=== PATIENT | female | born 1985 | race Caucasian/White ===

== ENCOUNTER 2016-10-16 08:52 | Inpatient (IN) | payer OTHER ==
[~2016-10-16] VITALS: Ht 172.7 cm; Wt 83.0 kg
[2016-10-16] VITALS (27 sets, daily range): BP systolic 105–157; BP diastolic 57–91
[~2016-10-16 08:52] MED LIST: ASPIR 8181 M1 PO; MOTRIN800 MG PO; PRENATAL TABLE1 EAC3 PO
[2016-10-16 10:18] LABS: EOSINOPHIL (%) 1.5 % (0-5); EOSINOPHIL COUNT 0.2 K/uL (0-0.3); HEMATOCRIT 37.7 % (36.0-46.0); IMMATURE GRANULOCYTE (%) 0.5 % (0.0-0.7); IMMATURE GRANULOCYTE COUNT 0.1 K/uL; LYMPHOCYTE COUNT 1.4 K/uL (1.0-2.8); MCH 30.5 PG (29.0-34.0); MCHC 34.2 G/DL (30.0-36.0); MCV 89.1 FL (83-99); MEAN PLAT.VOLUME 9.5 uM^3 (9.5-12.4); MONOCYTE (%) 5.3 % (3-12); MONOCYTE COUNT 0.6 K/uL (0-0.8); NEUTROPHIL (%) 79.6 % (45-76); NEUTROPHIL COUNT 8.8 K/uL (1.8-6.4); PLATELET COUNT 246 K/uL (156-360); RBC DIS.WIDTH-CV 13.2 % (11.8-14.6); RED BLOOD COUNT 4.23 M/uL (3.80-5.20)
[2016-10-16] MEDS ORDERED: IBUPROFEN800 MG PO (16:23)
[2016-10-17 07:41] VITALS: BP 134/73
[2016-10-17 14:08] VITALS: BP 127/76
[2016-10-17 23:37] VITALS: BP 130/61
[2016-10-18 07:50] VITALS: BP 108/64
== END 2016-10-18 14:53 | disposition home or self-care (01) | DRG 775 ==
LOC: LDRP-OP 08:52 → 2WEST 08:53 → LDRP-OP 11-16 13:18
PROVIDERS: Advanced Practice Midwife
PROC: 10E0XZZ Delivery of Products of Conception, External Approach (ICD-10-PCS; principal; 2016-10-16)
PROC: 3E0R3CZ (ICD-10-PCS; principal; 2016-10-16)
PROC: 10907ZC Drainage of Amniotic Fluid, Therapeutic from Products of Conception, Via Natural or Artificial Opening (ICD-10-PCS; principal; 2016-10-16)
PROC: 0KQM0ZZ Repair Perineum Muscle, Open Approach (ICD-10-PCS; principal; 2016-10-16)
PROC: 00HU33Z Insertion of Infusion Device into Spinal Canal, Percutaneous Approach (ICD-10-PCS; principal; 2016-10-16)
DX: O70.1 Second degree perineal laceration during delivery (principal); Z37.0 Single live birth; Z3A.39 39 weeks gestation of pregnancy
CPT/HCPCS: 85025; C1755; J3010; J7120